=== PATIENT | male | born 1970 | race Caucasian/White ===

== ENCOUNTER 2021-06-02 19:42 | Emergency (ER) | payer SELFPAY ==
[~2021-06-02] VITALS: Ht 170.2 cm; Wt 63.0 kg
[2021-06-02 20:36] VITALS: BP 143/88
[2021-06-02] MEDS ORDERED: ALBE200T13 PO (22:03)
--- NOTE | 2021-06-02 22:03 | ED.ADGEN ---
Past Medical History Past Surgical History: No Surgical History General Adult EDM: Chief Complaint: ABDOMINAL PAIN HPI: HPI: Patient is a 50 year old male coming in for concern for worms. Patient states that he had coughed up something that was string-like and white about 2 weeks ago and kept in a glass jar. Patient states that at the time it was white but now it is dried to the side it is a brownish color. Patient denies any wheezing, regular cough or chest discomfort. Patient is mostly here at the urging of his girlfriend who is concerned that their house is infested with worms after eating a beet that she states she saw a woman. He had noticed some "white things" in his stool but not any distinct worms. Patient states he otherwise has been well in his normal health. Denies any recent travel or undercooked meat. Also complaining of itching around his anus, which she had attributed to his hemorrhoids. States he did take a treatment for pinworms a few weeks ago. Review of Systems: Review of Systems: All other systems within normal limits except for as noted in the HPI Allergies: Allergies: Allergies Coded Allergies Type Severity Reaction Last Updated Verified No Known Drug Allergies 06/02/21 No Physical Exam: PE: Constitutional: Well developed, well nourished, no acute distress, non-toxic appearance. [] HENT: Normocephalic, atraumatic, bilateral external ears normal, nose normal. [] Eyes: PERRLA, conjunctiva normal, no discharge. [] Neck: No rigidity, supple, no stridor. [] Cardiovascular: Regular rate and rhythm, brisk cap refill [] Lungs & Thorax: Non labored symmetric respirations, no tachypnea or respiratory distress [] Abdomen: Soft, nondistended. Skin: Warm, dry, no erythema, no rash. [] Back: Unremarkable Extremities: No deformities, range of motion grossly intact, no lower extremity edema [] Neurologic: Alert and oriented X 3, no focal deficits noted. [] Psychologic: Affect normal, judgement normal, mood normal. [] Current Patient Data: Vital Signs: Vital Signs Date Time Temp Pulse Resp B/P (MAP) Pulse Ox O2 Delivery O2 Flow Rate FiO2 06/02/21 20:36 98.8 82 16 143/88 (106) 99 Room Air 98.8 EKG: EKG: [] Heart Score: C/O Chest Pain: No Risk Factors: Risk Factors: DM, Current or recent (<one month) smoker, HTN, HLP, family hi story of CAD, obesity. Risk Scores: Score 0 - 3: 2.5% MACE over next 6 weeks - Discharge Home Score 4 - 6: 20.3% MACE over next 6 weeks - Admit for Clinical Observation Score 7 - 10: 72.7% MACE over next 6 weeks - Early Invasive Strategies Radiology/Procedures: Radiology/Procedures: [] Course & Med Decision Making: Course & Med Decision Making Patient with stable vital signs and no significant symptoms. Discussed optional send out stool sample versus one-time treatment, but do not have albendazole in the emergency department will be sent home with a prescription. Advised patient and his significant other to follow-up with a primary care provider within the next 2 weeks for a stool study if symptoms have not resolved. Haile Disclaimer: Dragnadya Disclaimer: This electronic medical record was generated, in whole or in part, using a voice recognition dictation system. Departure Departure Impression: Primary Impression: Worms in stool Disposition: 07 LEFT AWOL/ELOPED Condition: STABLE Referrals: NO PCP (PCP) Patient Instructions: Albendazole tablets Scripts Albendazole (ALBENZA) 200 Mg Tablet 2 TAB PO ONCE for 1 Day, #2 TAB 0 Refills Prov: DELVIS MURRIETA MD 06/02/21 DELVIS MURRIETA MD Jun 02, 2021 22:03
== END 2021-06-02 22:10 | disposition home or self-care (01) ==
LOC: ER 19:42
DX: B82.9 Intestinal parasitism, unspecified (principal)
CPT/HCPCS: 99283